=== PATIENT | male | born 1945 | race Caucasian/White ===

== ENCOUNTER 2024-03-20 08:48 | Outpatient (CLI) | payer OTHER ==
[~2024-03-20] VITALS: Ht 175.3 cm; Wt 91.6 kg
[~2024-03-20 08:48] MED LIST: APIX5TAB3 PO; ATOR20TA66 PO; LISI40TA13 PO
[2024-03-20] MEDS: albuterol 2.5 MG/3 ML nebule NEB PRN (09:23)
[2024-03-20 09:25] VITALS: PULSE 76; RESP 14; O2SAT 93
[2024-03-20 09:36] VITALS: PULSE 83; RESP 15
== END 2024-03-20 23:59 | disposition home or self-care (01) ==
LOC: RT 08:48
PROVIDERS: ATTEND Chiropractor
DX: I26.99 Other pulmonary embolism without acute cor pulmonale (principal)
CPT/HCPCS: 94060; 94760

== ENCOUNTER 2024-04-26 16:13 | Emergency (ER) | payer OTHER, MEDICARE ==
[~2024-04-26] VITALS: Ht 172.7 cm; Wt 92.0 kg
[2024-04-26 18:26] VITALS: BP 153/87; PULSE 70; RESP 16; O2SAT 98
[2024-04-26 18:33] LABS: BASOPHILS % (AUTO) 0.5 % (0-1); EOSINOPHILS % (AUTO) 0.5 % (0-6); HEMATOCRIT 42.6 % (42.0-52.0); HEMOGLOBIN 14.1 g/dl (14.0-17.9); LYMPHOCYTES # (AUTO) 1.6 X10'3 (1.1-4.8); LYMPHOCYTES % (AUTO) 21.4 % (21-51); MEAN CORPUSCULAR HEMOGLOBIN 28.6 PG (27.0-31.0); MEAN CORPUSCULAR HGB CONC 33.1 g/dL (33.0-36.5); MEAN CORPUSCULAR VOLUME 86.4 FL (78-98); MEAN PLATELET VOLUME 9.5 FL (7.4-10.4); MONOCYTES # (AUTO) 0.6 X10'3 (0-0.9); MONOCYTES % (AUTO) 7.7 % (2-12); NEUTROPHILS # (AUTO) 5.2 X10'3 (1.8-7.7); NEUTROPHILS % (AUTO) 69.9 % (42-75); PLATELET COUNT 219 X10'3 (140-440); RED BLOOD COUNT 4.94 X10'6 (4.70-6.10); RED CELL DISTRIBUTION WIDTH 13.5 % (11.5-14.5); WHITE BLOOD COUNT 7.5 X10'3 (4.5-11.0)
[2024-04-26 18:43] LABS: ALBUMIN 3.7 G/DL (3.4-5.0); ANION GAP 8 (8-16); BLOOD UREA NITROGEN 28 MG/DL (7-18); BUN/CREATININE RATIO 23.1 (10.0-20.0); CALCIUM 8.9 MG/DL (8.5-10.1); CHLORIDE 112 MMOL/L (99-107); CREATININE 1.21 MG/DL (0.60-1.10); GLUCOSE 110 MG/DL (70-104); POTASSIUM 4.5 MMOL/L (3.5-5.1); SODIUM 145 MMOL/L (135-145); TOTAL CARBON DIOXIDE 25.1 MMOL/L (24-32); eCRCL 49 ML/MIN; eGFR 58 ML/MIN
[2024-04-26 18:52] VITALS: TEMP 98.3
== END 2024-04-26 18:54 | disposition home or self-care (01) ==
LOC: ER 16:14
DX: I82.403 Acute embolism and thrombosis of unspecified deep veins of lower extremity, bilateral (principal); E78.00 Pure hypercholesterolemia, unspecified; I10 Essential (primary) hypertension; Z88.1 Allergy status to other antibiotic agents; Z88.2 Allergy status to sulfonamides; Z79.899 Other long term (current) drug therapy
CPT/HCPCS: 36415; 80048; 85025; 93970; 99284